=== PATIENT | female | born 2005 | race African-American/Black ===

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

== ENCOUNTER 2023-09-07 12:44 | Emergency (ER) | payer BC, SELFPAY ==
[2023-09-07 12:51] VITALS: BP 120/67; PULSE 81; RESP 18; TEMP 36.6; O2SAT 99; BMI 23.4
[2023-09-07 13:24] LABS: Appearance Urine Slightly Cloudy (Clear); Bilirubin Urine Negative (Negative); Blood Urine 3+ (Negative); Color Urine Yellow (Yellow); Glucose Urine Negative (Negative); Ketones Urine Negative (Negative); Leukocyte Esterase Urine Negative (Negative); Nitrite Urine Negative (Negative); Protein Urine Negative (Negative); Specific Gravity Urine >= 1.030 (1.000-1.030); Urobilinogen Urine 0.2 (0.2-1.0); pH Urine 5.5 (5.0-8.5)
[2023-09-07 13:53] LABS: Bacteria Urine Few; Mucus Urine Few; Squamous Epithelial Cell Urine Few (None-Few)
--- NOTE | 2023-09-07 16:36 | ED_ITS ---
HPI - Abdominal Pain General Time Seen by Provider: 16:36 Date Seen: 09/07/23 Chief Complaint: Abdominal Pain Stated Complaint: Abdominal pain, suspected UTI Time Seen by Provider: 09/07/23 16:36 Source: patient Mode of arrival: ambulatory Limitations: no limitations History of Present Illness HPI narrative: Karen is a very pleasant 17-year-old female history of UTI treated with Keflex approximately 1 and half weeks ago last dose of antibiotic on ThursdaySeptember 03 who comes to the emergency room complaining of abdominal cramping and urinary symptoms. Patient notes the return of urinary symptoms including dysuria and urgency today. She states that this feels like it did last week. She is sexually active with 1 partner only. She denies a fever, back pain. She does complain of abdominal pain but notes this is from her period. She notes that she did improve with the use of Keflex last week. She took the full 7 days. Related Data Home Medications Medication Instructions Recorded Confirmed No Known Home Medications 08/07/22 08/07/22 Allergies Allergy/AdvReac Type Severity Reaction Status Date / Time gelatin AdvReac Unknown Verified 08/07/22 11:11 Pork/Porcine Containing AdvReac Unknown Verified 08/07/22 11:11 Products Review of Systems Status of ROS Reports: 6 or more systems reviewed and unremarkable except as noted in History and below Const Denies: fever or chills Cardio Denies: shortness of breath with exertion Resp Denies: shortness of breath GI Reports: abdominal pain; Denies: vomiting Reports: painful urination, urinary frequency, urinary urgency, blood in urine (Currently menstruating) and painful menstruation Musculo Denies: back pain [facility] Social History Smoking Status: Never smoker Do you use any of these nicotine containing products: None Second hand tobacco smoke exposure: No How often do you have a drink containing alcohol: monthly or less How often do you have six or more drinks on one occasion: Never AUDIT-C Alcohol total score: 1 Non-prescribed substance use: denies use service: No Exam Narrative: Exam Narrative: Patient is alert and oriented. Somewhat tearful in she states that while she is on her. She does get more emotional. Otherwise mentating normally. Appropriate eye contact and statements. Heart with regular rate and rhythm and lungs are clear. No CVA tenderness with percussion. Moving all extremities. Const: Vital Signs, click to edit/add: Vital Signs - 24 hr 09/07/23 12:51 Temperature 97.8 F Pulse Rate [Pulse Oximeter] 81 Respiratory Rate 18 Blood Pressure [Ri ght Upper Arm] 120/67 Pulse Oximetry 99 Oxygen Delivery Me thod Room Air Documenting provider has reviewed patient's vital signs: yes Course Course ED Course: At this time patient was treated with unknown antibiotic. We will check [facility] here in [place] to find out with the patient received. She denies any allergies. Patient notes that she has not had any medications today. Will give her ibuprofen 400 mg as well as 1 dose of Pyridium 200 mg p.o.. Vital Signs Vital signs: Initial Vital Signs Temperature 97.8 F 09/07/23 12:51 Temperature Source Temporal Artery Scan 09/07/23 12:51 Pulse Rate 81 09/07/23 12:51 Respiratory Rate 18 09/07/23 12:51 Blood Pressure 120/67 09/07/23 12:51 Blood Pressure Mean 84 09/07/23 12:51 Blood Pressure Position Sitting 09/07/23 12:51 Pulse Oximetry 99 09/07/23 12:51 Oxygen Delivery Method Room Air 09/07/23 12:51 Vital Signs Temperature 97.8 F 09/07/23 12:51 Pulse Rate 81 09/07/23 12:51 Respiratory Rate 18 09/07/23 12:51 Blood Pressure 120/67 09/07/23 12:51 Pulse Oximetry 99 09/07/23 12:51 Oxygen Delivery Method Room Air 09/07/23 12:51 Temperature 97.8 F 09/07/23 12:51 Pulse Rate 81 09/07/23 12:51 Respiratory Rate 18 09/07/23 12:51 Blood Pressure 120/67 09/07/23 12:51 Pulse Oximetry 99 09/07/23 12:51 Oxygen Delivery Method Room Air 09/07/23 12:51 MDM - Abdominal Pain MDM Narrative Medical decision making narrative: 1. UTI-patient noted recurrence of urinary tract symptoms. I did inquire about concerns of sexually transmitted infections but she states that she does not have any worries about that. We did find that patient had been on Keflex last week. We will switch patient to Cipro 500 mg p.o. b.i.d. x5 days. Definitely await the urine culture for ID and sensitivities. I doubt that this was done in this healthy young woman at previous visit which is per up-to-date guidelines not to do urine culture. With recurrence we will definitely pursue that. Recommend increasing fluids. 200 mg tablet of Pyridium given in the ED which should help treat patient's discomfort as the antibiotic is kicking in. Discussed Pyridium so tendency to stain underwear and possibly even contacts while being used. 2. Uterine cramping-patient currently menstruating. I did provide 400 mg of ibuprofen as she has not had any pain medications today. 3. Disposition-home at this time. Seek medical attention for worsening symptoms including fever, back pain, vomiting. Patient is advised to return to the emergency room with the shooting should happen and not go to urgent care or wait for a clinic appointment. Medical Records Attestation: I reviewed the patient's medical records. Lab Data Attestation: I reviewed the patient's lab results. Labs: Lab Results 09/07/23 Range/Units 13:10 Urine Color Yellow (Yellow) Urine Appearance Slightly Cloudy A (Clear) Urine pH 5.5 (5.0-8.5) Ur Specific [place] >= 1.030 (1.000-1.030) Urine Protein Negative (Negative) Urine Glucose (UA) Negative (Negative) Urine Ketones Negative (Negative) Urine Blood 3+ A (Negative) Urine Nitrite Negative (Negative) Urine Bilirubin Negative (Negative) Urine Urobilinogen 0.2 (0.2-1.0) Ur Leukocyte Esterase Negative (Negative) Urine RBC 10-25 A (0-2) Urine WBC 10-25 A (0-5) Ur Squamous Epith Cells Few (None-Few) Urine Bacteria Few A (None) Urine Mucus Few A (None) Urine Yeast Few A (None) Discharge Plan Discharge Patient Disposition: Home, Self-Care Condition: Unchanged Additional Instructions: Pyridium will turn your urine bright orange and will stain your underwear. This will take away the urinary symptoms while the antibiotic is starting to work. Increase her fluids at this time. Antibiotic will be Cipro. I have dispensed this through our [employer] vending machine. We will send your urine for a culture and contact you if this antibiotic needs to be changed. Return to the emergency room for vomiting, fever, increasing pain in your back and as needed. Prescriptions: No Action No Known Home Medications Follow Up/Referrals: Provider,Not a Local [Primary Care Provider] - Stand Alone Forms: [employer] Info Instructions
== END 2023-09-07 17:14 | disposition home or self-care (01) ==
PROVIDERS: Emergency Provider Family Medicine
DX: N39.0 Urinary tract infection, site not specified (principal)
CPT/HCPCS: 81001; 87086; 87186; 99283

== ENCOUNTER 2024-09-12 10:32 | Emergency (ER) | payer BC, SELFPAY ==
--- OUTSIDE RECORDS SUMMARY | 2024-09-12 10:34 | XMS_ITS | Encounter Summary ---
Author Organization [employer] Address [address] [place] [address] Care Team Providers Care Ecommerce Project Manager Name Role Phone Radha Marie MD Primary Care Provider Encounter Details Date Type Department Care Team (Late st Contact Info) Description 08/18/2014 Emergency Room External to [facility] ED DISCHARGE SUMMARY Social History Tobacco Use Types Packs/Day Years Used Date Smoking Tobacco: Never Smokeless Tobacco: Never Comments:10 Alcohol Use Standard Drinks/Week Comments No 0 (1 standard drink = 0.6 oz pur e alcohol) Comments Unknown Sex and Gender Information Value Date Recorded Sex Assigned at Not on file Legal Sex Female 6:23 AM CDT Gender Identity Not on file Sexual Orientation Not on file documented as of this encounter Plan of Treatment Not on file documented as of this encounter Visit Diagnoses Not on filedocumented in this encounter Care Teams Ecommerce Project Manager Relationship Specialty Start Date End Date Radha Marie MD [facility] [place] [address] PCP - General Pediatric Medicine 08/21/14 documented as of this encounter
--- OUTSIDE RECORDS SUMMARY | 2024-09-12 10:34 | XMS_ITS | Encounter Summary ---
Author Organization [employer] Address [address] [place] [address] Care Team Providers Care Professor Of Communication And Writing Name Role Phone Radha Marie MD Primary Care Provider Encounter Details Date Type Department Care Team (Late st Contact Info) Description 07/02/2018 Correspondence None No Primary/Referring, Phy PAYMENT AGREEMENT WAIVER Social History Tobacco Use Types Packs/Day Years Used Date Smoking Tobacco: Never Smokeless Tobacco: Never Comments:10 Alcohol Use Standard Drinks/Week Comments No 0 (1 standard drink = 0.6 oz pur e alcohol) Comments No Sex and Gender Information Value Date Recorded Sex Assigned at Not on file Legal Sex Female 6:23 AM CDT Gender Identity Not on file Sexual Orientation Not on file documented as of this encounter Plan of Treatment Not on file documented as of this encounter Visit Diagnoses Not on filedocumented in this encounter Care Teams Professor Of Communication And Writing Relationship Specialty Start Date End Date Radha Marie MD [facility] [place] [address] PCP - General Pediatric Medicine 08/21/14 documented as of this encounter
--- OUTSIDE RECORDS SUMMARY | 2024-09-12 10:34 | XMS_ITS | Clinical Summary ---
[facility] Address [address] [facility] [place] [address] Care Team Providers Care Field Marketing Director Name Role Phone Radha Marie MD Primary Care Provider Source Comments You are receiving this document as you are listed as the primary care provider,follow-up provider, or the patient has been referred to you for consultation.This is in compliance with the Medicare and[facility] EHR Incentive Program,which states Providers who transition their patient to another setting of careor provider of care or refers their patient to another provider of care shouldprovide summary care record for each transition of care or referral. [facility] Allergies No known active allergies Medications azithromycin (ZITHROMAX Z-BUDDY) 250 MG tabletIndicatio ns:Pneumonia due to infectious organism, unspecified laterality, unspecified part of lung Take two tablets today, then one tablet daily - days two through five. 6 Tablet 06/06/19 22 Active Additional Information Patient not taking.Reported on 08/30/2021 etonogestrel (NEXPLANON) 68 MG implant Inject 68 mg subcutaneously once. Active acetaminophen (TYLENOL) 500 MG tablet Take 1-2 Tablets (500-1,000 mg) by mouth every 6 hours as needed for Pain. Maximum acetaminophen dose is 4000 mg in 24 hours 100 Tablet 03/28/20 24 Active Active Problems Problem Noted Date Diagnosed Date Mild scoliosis 08/21/2014 Dental caries 05/24/2009 Other general medical examin ation for administrative purposes 05/24/2009 Overview (01/14/2017): immigrant from [place]2008 [place], lived in [facility] Resolved Problems Problem Noted Date Diagnosed Date Resolved Date Low back pain 06/19/2015 08/28/2015 Giardia 07/03/2009 03/14/2010 Vitamin D deficiency 06/01/2009 010 Tinea capitis 05/24/2009 03/14/2010 Immunizations Immunization Administration Dates Next Due 9vHPV (Gardasil 9) 2020,04/23/2018 DTaP 01/12/2009 DTaP-IPV (Kinrix, 4-6 yrs) 03/14/2010,05/24/2009 Flu Vac (3+ yrs) 05/24/2009 H1n1 Laiv Medimmune 2-49 Yr (Intranasal) 009 HepA Ped/Adol (1-18 yrs) 2020,04/23/2018 HepB Ped/Adol (0-18 yrs) 03/14/2010,05/24/2009,0 01/12/2009 Influenza IIV4 (Quadrivalent) 0.5mL (17744) 01/23 Influenza LAIV3 2-49 years (Flumist) 06/29/2012, 03/14/2010 MCV4 Menveo 2m.+ (two vial) 2020, 8 MMR 05/24/2009,01/12/2009 Polio, Unspecified Formulation 01/12/2009 Tdap 04/23/2018 Varicella 05/24/2009,01/12/2009 Family History Medical History Relation Name Comments Hypertension Father Amblyopia/Strabismus Negative Family History Cataract Negative Family History Glaucoma Negative Family History Macular Degeneration Negative Family History Relation Name Status Comments Father Social History Tobacco Use Types Packs/Day Years Used Date Smoking Tobacco: Never Smokeless Tobacco: Never Comments:10 Alcohol Use Standard Drinks/Week Comments No 0 (1 standard drink = 0.6 oz pur e alcohol) Comments No Sex and Gender Information Value Date Recorded Sex Assigned at Not on file Legal Sex Female 6:23 AM CDT Gender Identity Not on file Sexual Orientation Not on file Last Filed Vital Signs Vital Sign Reading Time Taken Comments Blood Pressure 102/57 03/28/2024 1:21 PM MEDICAL VAN DRIVER Pulse 79 03/28/2024 1:21 PM MEDICAL VAN DRIVER Temperature 37.2 C (99 F) 03/28/2024 1:21 PM MEDICAL VAN DRIVER Respiratory Rate 16 03/28/2024 1:21 PM MEDICAL VAN DRIVER Oxygen Saturation 98% 03/28/2024 1:21 PM MEDICAL VAN DRIVER Inhaled Oxygen Concentration - - Weight 54 kg (119 lb) 06/06/2021 3:57 PM MEDICAL VAN DRIVER pt reported Height 152.4 cm (5') 06/06/2021 3:57 PM MEDICAL VAN DRIVER pt r eported Body Mass Index 23.24 06/06/2021 3:57 PM MEDICAL VAN DRIVER Plan of Treatment Health Maintenance Due Date Last Done Comments Cervical Cancer Screening Due 2003 Chlamydia 2003 MenB Immunization Discussion 2003 Tuberculosis Screening 2003 Adult Preventive Visit 09/10/2021 , 04/23/2018, 06/29/2012, Additional history exists COVID-19 Vaccine ( season) 2024 06/07/2022, 12/11/2021, 10/24/2020 Influenza Vaccine (#1) 2024 9, 06/29/2012, 03/14/2010, Additional history exists DTaP/Tdap/Td Vaccine (5 - Tdap) 04/23/2028 04/23/2018, 03/14/2010, 05/24/2009, Additional history exists Zoster/Shingles Vaccine (1 of 2) 09/10/2053 HIV Screening (Preventive Services) Completed 05/24/2009 Hep C Screening (Preventive Services) Completed 05/24/2009 Varicella Vaccine Completed 05/24/2009, 01/12/2009 HepB Vaccine Completed 03/14/2010, 04/26, 01/12/2009 IPV (Polio) Vaccine Completed 03/14/2010, 05/24/2009, 01/12/2009 HPV Vaccine Completed 2020, 04/23/2018 HepA Vaccine Completed 2020, 04/23/2018 MCV4 Vaccine Completed 2020, 04/23/2018 Hib Vaccine Aged Out No longer eligi ble based on patient's age to complete this topic Pneumococcal Vaccine Aged Out No long er eligible based on patient's age to complete this topic Procedures Procedure Name Priority Date/Time Associated Diagnosis Comments HIV DNA PCR, QUAL Routine 05/24/2009 4:1 3 PM MEDICAL VAN DRIVER Other General Medical Examination for Administrative Purposes HEPATITIS C ANTIBODY, WITH REFLEX Routine 05/24/2009 4:13 PM MEDICAL VAN DRIVER Other General Medical Examination for Administrative Purposes from Last 3 Months or Most Recently Relevant to Health Maintenance Results * hiv (05/24/2009 4:13 PM MEDICAL VAN DRIVER) HIV DNA Qualitative NOT DETECTED Reference range: See (NOTE) [facility] HIV DNA Qualitative (NOTE) REFERENCE RANGE: NOT DETECTED This test was performed using a kit that has not been cleared or approved by the FDA. The analytical performance characteristics of this test have been determined by [employer]. This test should not be used for diagnosis without confirmation by other medically established means. Test performed at [email or web address] [facility] [address] [place] [id number] Director: WILBUR LOPEZ MD [facility] 05/24/2009 4:13 PM MEDICAL VAN DRIVER 05/24/2009 4:24 PM MEDICAL VAN DRIVER us Didi Posadas MD LAB_1 Final Res ult [facility] [address] [id number] * hep c (05/24/2009 4:13 PM MEDICAL VAN DRIVER) Anti-HCV Non-Reacti ve NR [facility] Comment:Does Not Rule Out In fection with HCV 05/24/2009 4:13 PM MEDICAL VAN DRIVER 05/24/2009 4:24 PM MEDICAL VAN DRIVER us Didi Posadas MD LAB_1 Final Res ult [employer] [address] [place] [address] from Last 3 Months or Most Recently Relevant to Health Maintenance Care Teams Field Marketing Director Relationship Specialty Start Date End Date Radha Marie MD [address] [place] [address] PCP - General Pediatric Medicine 08/21/14
--- OUTSIDE RECORDS SUMMARY | 2024-09-12 10:34 | XMS_ITS | Encounter Summary ---
Author Organization [employer] Address [address] [place] [address] Care Team Providers Care Box Sealing Machine Operator Name Role Phone Radha Marie MD Primary Care Provider [phone] Encounter Details Date Type Department Care Team (Late st Contact Info) Description 03/17/2019 Correspondence None No Primary/Referring, Phy [employer] [facility] Social History Tobacco Use Types Packs/Day Years [...] on filedocumented in this encounter Care Teams Box Sealing Machine Operator Relationship Specialty Start Date End Date Radha Marie MD [address] [place] [address] PCP - General Pediatric Medicine 08/21/14 documented as of this encounter
--- OUTSIDE RECORDS SUMMARY | 2024-09-12 10:35 | XMS_ITS | Encounter Summary ---
Author Organization [employer] Address [address] [place] [address] Care Team Providers Care Belt And Link Assembly Supervisor Name Role Phone Radha Marie MD Primary Care Provider Encounter Details Date Type Department Care Team (Late st Contact Info) Description 05/10/2018 Emergency Room External to [facility] ED DISCHARGE SUMMARY Social History Tobacco [...] on filedocumented in this encounter Care Teams Belt And Link Assembly Supervisor Relationship Specialty Start Date End Date Radha Marie MD [address] [place] [address] PCP - General Pediatric Medicine 08/21/14 documented as of this encounter
--- OUTSIDE RECORDS SUMMARY | 2024-09-12 10:35 | XMS_ITS | Encounter Summary ---
Author Organization [facility] Address [address] [place] [address] Care Team Providers Care Cotton Farmworker Name Role Phone Radha Marie MD Primary Care Provider Encounter Details Date Type Department Care Team (Late st Contact Info) Description 05/10/2018 Emergency Room External to [facility], Provider [facility] HEAD INJURY Social History Tobacco Use Types Packs/Day Years [...] on filedocumented in this encounter Care Teams Cotton Farmworker Relationship Specialty Start Date End Date Radha Marie MD [address] [place] [address] PCP - General Pediatric Medicine 08/21/14 documented as of this encounter
[2024-09-12 10:43] VITALS: BP 114/70; PULSE 85; RESP 16; TEMP 36.7; O2SAT 99; BMI 25.8
--- NOTE | 2024-09-12 10:50 | ED.FEMALEGU ---
HPI - Female Genitourinary General Time Seen by Provider: 10:50 Date Seen: 09/12/24 Chief complaint: Urogenital Problems, Female Stated complaint: UTI Time Seen by Provider: 09/12/24 10:43 Source: patient and RN notes reviewed Mode of arrival: ambulatory Limitations: no limitations History of Present Illness HPI Narrative: This 19-year-old female is coming in with dysuria and frequency, no hematuria for about 2 weeks. She states she had urinary tract infection about 2 months ago, took an antibiotic but does not remember what it was. She was at an Urgent Care [facility] for treatment. She states her symptoms improved. They have returned now. She has no history kidney stones. She has no abdominal pain, no flank pain, no nausea or vomiting with this. She has had no fevers or chills. She states there is no chance for . Related Data Previous Rx's ?Medication ?Instructions ?Recorded phenazopyridine 200 mg tablet 200 mg PO TID PRN pain 6 doses #6 09/12/24 tabs Allergies Allergy/AdvReac Type Severity Reaction Status Date / Time gelatin AdvReac Unknown Verified 09/12/24 10:42 Pork/Porcine Containing AdvReac Unknown Verified 09/12/24 10:42 Products Review of Systems Narrative: As per HPI. PFSH PFSH Social History Smoking Status: Never smoker Do you use any of these nicotine containing products: None Second hand tobacco smoke exposure: No How often do you have a drink containing alcohol: monthly or less How often do you have six or more drinks on one occasion: Never AUDIT-C Alcohol total score: 1 Non-prescribed substance use: denies use service: No Exam Const: Vital Signs, click to edit/add: Vital Signs - 24 hr 09/12/24 10:43 Temperature 98.0 F Pulse Rate [Pulse Oximeter] 85 Respiratory Rate 16 Blood Pressure [Ri ght Upper Arm] 114/70 Pulse Oximetry 99 Oxygen Delivery Me thod Room Air This 19-year-old female is alert, interactive, no apparent distress. She is ambulatory into the ED of her own accord. Lungs are clear, good air entry, no wheezing or crackles, no tachypnea accessory muscle use. Speech is normal. CV regular rate and rhythm, no murmur. No CVA tenderness. Abdomen is soft, nontender, nondistended, no organomegaly. Documenting provider has reviewed patient's vital signs: yes Course Course ED Course: Will check urinalysis, rule out urinary tract infection or rule in perhaps. Patient has no abdominal pain, no systemic symptoms. Reevaluation(s) Time of Reevaluation #1: 11:18 Reevaluation #1: Have reviewed with patient that her urinalysis is not indicative of any infection. We will culture this and certainly notify her if it should grow something but on the chemical analysis there is no indication for infection or treatment. We discussed other etiologies like interstitial cystitis, chlamydia. Recommended that we collected dirty urine while she was here but she declines. She states she and her partner have only been with each other. Have reviewed with her I do think we should consider doing the chlamydia gonorrhea check on the urine but she is adamant and declines. Have asked her to follow up in clinic, will give her course of peridium to try while we await confirmatory urine culture. Vital Signs Vital signs: Initial Vital Signs Temperature 98.0 F 09/12/24 10:43 Temperature Source Temporal Artery Scan 09/12/24 10:43 Pulse Rate 85 09/12/24 10:43 Pulse Rhythm Regular 09/12/24 10:43 Respiratory Rate 16 09/12/24 10:43 Blood Pressure 114/70 09/12/24 10:43 Blood Pressure Mean 84 09/12/24 10:43 Blood Pressure Position Sitting 09/12/24 10:43 Pulse Oximetry 99 09/12/24 10:43 Oxygen Delivery Method Room Air 09/12/24 10:43 Vital Signs Temperature 98.0 F 09/12/24 10:43 Pulse Rate 85 09/12/24 10:43 Respiratory Rate 16 09/12/24 10:43 Blood Pressure 114/70 09/12/24 10:43 Pulse Oximetry 99 09/12/24 10:43 Oxygen Delivery Method Room Air 09/12/24 10:43 Temperature 98.0 F 09/12/24 10:43 Pulse Rate 85 09/12/24 10:43 Respiratory Rate 16 09/12/24 10:43 Blood Pressure 114/70 09/12/24 10:43 Pulse Oximetry 99 09/12/24 10:43 Oxygen Delivery Method Room Air 09/12/24 10:43 MDM - Female Genitourinary Lab Data Attestation: I reviewed the patient's lab results. Labs: Lab Results 09/12/24 09/12/24 Range/Units 10:40 10:51 Urine Color Yellow (Yellow) Urine Appearance Clear (Clear) Urine pH 7.5 (5.0-8.5) Ur Specific [place] 1.020 (1.000-1.030) Urine Protein Negative (Negative) Urine Glucose (UA) Negative (Negative) Urine Ketones 1+ A (Negative) Urine Blood Negative (Negative) Urine Nitrite Negative (Negative) Urine Bilirubin Negative (Negative) Urine Urobilinogen 0.2 (0.2-1.0) Ur Leukocyte Esterase Negative (Negative) Urine RBC 0-2 (0-2) Urine WBC 0-2 (0-5) Ur Squamous Epith Cells None (None-Few) Urine Bacteria None (None) Urine HCG, Qual Negative (Negative) Lab Acknowledgement Test Added Discharge Plan Discharge Clinical Impression: Dysuria Patient Disposition: Home, Self-Care Condition: Stable Instructions: Dysuria (ED) Additional Instructions: Can try pyridium for comfort (will turn urine bright yellow/orange, can stain clothes, do not use contacts if you wear them while using this medication). Continue to drink adequate fluids. We will notify you if your urine culture does grow anything. Otherwise, follow up in clinic if your symptoms are continuing. You will need further evaluation and possibly even referral to urology if you have ongoing symptoms and the urine culture is negative. Activity Level: No Restrictions Prescriptions: New phenazopyridine 200 mg tablet 200 mg PO TID PRN (Reason: pain) Qty: 6 0RF Follow Up/Referrals: Provider,Not a Local [Primary Care Provider] - Stand Alone Forms: [employer] Info Instructions
[2024-09-12 11:00] LABS: Appearance Urine Clear (Clear); Bilirubin Urine Negative (Negative); Blood Urine Negative (Negative); Color Urine Yellow (Yellow); Glucose Urine Negative (Negative); Ketones Urine 1+ (Negative); Leukocyte Esterase Urine Negative (Negative); Nitrite Urine Negative (Negative); Protein Urine Negative (Negative); Urobilinogen Urine 0.2 (0.2-1.0); pH Urine 7.5 (5.0-8.5)
[2024-09-12 11:01] LABS: Ur HCG Qualitative* Negative (Negative)
[2024-09-12 11:10] LABS: RBC Urine 0-2 (0-2); WBC Urine 0-2 (0-5)
--- OUTSIDE RECORDS SUMMARY | 2024-09-12 11:23 | XMS_ITS | Encounter Summary ---
Author Organization [employer] Address [address] [place] [address] Care Team Providers Care Special Skills Officer Name Role Phone Radha Marie MD Primary Care Provider [phone] Encounter Details Date Type Department Care Team (Late st Contact Info) Description 08/18/2014 Emergency Room External to [facility], [facility] ED DISCHARGE SUMMARY Social History Tobacco Use [...] on filedocumented in this encounter Care Teams Special Skills Officer Relationship Specialty Start Date End Date Radha Marie MD [facility] [place] [address] PCP - General Pediatric Medicine 08/21/14 documented as of this encounter
--- OUTSIDE RECORDS SUMMARY | 2024-09-12 11:23 | XMS_ITS | Encounter Summary ---
Author Organization [employer] Address [address] [place] [address] Care Team Providers Care Mechanical Technologist Name Role Phone Radha Marie MD Primary Care Provider [phone] Encounter Details Date Type Department Care Team (Late st Contact Info) Description 05/10/2018 Emergency Room External to [facility], Provider [facility] HEAD INJURY Social History Tobacco [...] on filedocumented in this encounter Care Teams Mechanical Technologist Relationship Specialty Start Date End Date Radha Marie MD [address] [place] [address] PCP - General Pediatric Medicine 08/21/14 documented as of this encounter
--- OUTSIDE RECORDS SUMMARY | 2024-09-12 11:23 | XMS_ITS | Clinical Summary ---
[facility] Address [address] [facility] [place] [address] Care Team Providers Care Injection Mold Tooling Technician Name Role Phone Radha Marie MD Primary Care Provider Source Comments You are receiving this document as you are listed as the primary care provider,follow-up provider, or the patient has been referred to you for consultation.This is in compliance with the Medicare and[facility] EHR Incentive Program,which states Providers who transition their patient to another setting of careor provider of care or refers their patient to another provider of care shouldprovide summary care record for each transition of care or referral. [employer] [facility] Allergies No known active allergies Medications azithromycin [...] 05/24/2009 Overview (01/14/2017): immigrant from [place] 12/2008 [place], lived in [facility] Resolved Problems Problem Noted Date Diagnosed Date [...] yrs) 03/14/2010,05/24/2009,0 01/12/2009 Influenza IIV4 (Quadrivalent) 0.5mL (19151) 01/23 Influenza LAIV3 2-49 years (Flumist) 06/29/2012, [...] Comments Blood Pressure 102/57 03/28/2024 1:21 PM GROUP WORK PROGRAM AIDE Pulse 79 03/28/2024 1:21 PM GROUP WORK PROGRAM AIDE Temperature 37.2 C (99 F) 03/28/2024 1:21 PM GROUP WORK PROGRAM AIDE Respiratory Rate 16 03/28/2024 1:21 PM GROUP WORK PROGRAM AIDE Oxygen Saturation 98% 03/28/2024 1:21 PM GROUP WORK PROGRAM AIDE Inhaled Oxygen Concentration - - Weight 54 kg (119 lb) 06/06/2021 3:57 PM GROUP WORK PROGRAM AIDE pt reported Height 152.4 cm (5') 06/06/2021 3:57 PM GROUP WORK PROGRAM AIDE pt r eported Body Mass Index 23.24 06/06/2021 3:57 PM GROUP WORK PROGRAM AIDE Plan of Treatment Health Maintenance Due Date [...] PCR, QUAL Routine 05/24/2009 4:1 3 PM GROUP WORK PROGRAM AIDE Other General Medical Examination for Administrative Purposes HEPATITIS C ANTIBODY, WITH REFLEX Routine 05/24/2009 4:13 PM GROUP WORK PROGRAM AIDE Other General Medical Examination for Administrative Purposes from Last 3 Months or Most Recently Relevant to Health Maintenance Results * hiv (05/24/2009 4:13 PM GROUP WORK PROGRAM AIDE) HIV DNA Qualitative NOT DETECTED Reference range: See (NOTE) [facility] HIV DNA Qualitative (NOTE) REFERENCE RANGE: NOT DETECTED This test was performed using a kit that has not been cleared or approved by the FDA. The analytical performance characteristics of this test have been determined by [employer]. This test should not be used for diagnosis without confirmation by other medically established means. Test performed at [facility] [address] [place] [id number] Director: WILBUR LOPEZ [facility] 05/24/2009 4:13 PM GROUP WORK PROGRAM AIDE 05/24/2009 4:24 PM GROUP WORK PROGRAM AIDE us Didi Posadas MD LAB_1 Final Res ult [facility] [address] [id number] * hep c (05/24/2009 4:13 PM GROUP WORK PROGRAM AIDE) Anti-HCV Non-Reacti ve NR [facility] Comment:Does Not Rule Out In fection with HCV 05/24/2009 4:13 PM GROUP WORK PROGRAM AIDE 05/24/2009 4:24 PM GROUP WORK PROGRAM AIDE us Didi Posadas MD LAB_1 Final Res ult [employer] [address] [place] [address] from Last 3 Months or Most Recently Relevant to Health Maintenance Care Teams Injection Mold Tooling Technician Relationship Specialty Start Date End Date Radha Marie MD [address] [place] [address] PCP - General Pediatric Medicine 08/21/14
--- OUTSIDE RECORDS SUMMARY | 2024-09-12 11:23 | XMS_ITS | Encounter Summary ---
Author Organization [employer] Address [address] [place] [address] Care Team Providers Care Plaster Machine Operator Name Role Phone Radha Marie MD Primary Care Provider Encounter Details Date Type Department Care Team (Late st Contact Info) Description 05/10/2018 Emergency Room External to [facility], [facility] ED DISCHARGE SUMMARY Social History [...] on filedocumented in this encounter Care Teams Plaster Machine Operator Relationship Specialty Start Date End Date Radha Marie MD [address] [place] [address] PCP - General Pediatric Medicine 08/21/14 documented as of this encounter
--- OUTSIDE RECORDS SUMMARY | 2024-09-12 11:23 | XMS_ITS | Encounter Summary ---
Author Organization [employer] Address [address] [place] [address] Care Team Providers Care Production Administrative Assistant Name Role Phone Radha Marie MD Primary [...] on filedocumented in this encounter Care Teams Production Administrative Assistant Relationship Specialty Start Date End Date Radha Marie MD [address] [place] [address] PCP - General Pediatric Medicine 08/21/14 documented as of this encounter
--- OUTSIDE RECORDS SUMMARY | 2024-09-12 11:23 | XMS_ITS | Encounter Summary ---
Author Organization [employer] Address [address] [place] [address] Care Team Providers Care Photographer'S Assistant Name Role Phone Radha Marie MD [...] on filedocumented in this encounter Care Teams Photographer'S Assistant Relationship Specialty Start Date End Date Radha Marie MD [facility] [place] [address] PCP - General Pediatric Medicine 08/21/14 documented as of this encounter
== END 2024-09-12 11:36 | disposition home or self-care (01) ==
PROVIDERS: Emergency Provider Family Medicine
DX: R30.0 Dysuria (principal)
CPT/HCPCS: 81001; 81025; 99283